=== PATIENT | female | born 1975 | race African-American/Black ===

== ENCOUNTER 2016-08-31 14:09 | Emergency (ER) | payer OTHER ==
[~2016-08-31] VITALS: Ht 162.6 cm; Wt 81.6 kg
[2016-08-31 15:41] VITALS: BP 148/79
[2016-08-31] MEDS ORDERED: HYDROCODONE/APAP 5/325MG TABLET. PO ONE (16:30)
[2016-08-31] MEDS ORDERED: IBUPROFEN 600 MG TABLET. PO ONE (16:30)
--- NOTE | 2016-08-31 16:46 | RAD ---
Indication injury pain in both knees AP oblique and lateral views of both knees were obtained. Views of the left knee appear normal. There are no significant degenerative changes. An acute bony finding is not seen. Significant joint fluid is not seen. Views of the right knee suggest possible mild degenerative change. There is suggested slight medial joint space compartment narrowing. An acute finding is not seen. IMPRESSION: No acute finding seen involving either knee. Suspect mild degenerative change involving the right knee
[2016-08-31] MEDS ORDERED: HYDR-971 PO (16:58)
--- NOTE | 2016-08-31 16:58 | PHYS DOC ---
Past Medical History Past Medical History: No Pertinent History Past Surgical History: Alcohol Use: None Drug Use: None Adult General Chief Complaint Chief Complaint: KNEE INJURY HPI HPI Patient is a 41 year old female with complaint of bilateral knee pain secondary to a slip and fall at a local grocery store within the past hour prior to arrival. Patient denies striking her head or loss of consciousness. She denies any history of knee injuries such as ligamentous injuries, fractures or dislocations. Review of Systems Review of Systems Constitutional: Denies fever or chills [] Eyes: Denies change in visual acuity, redness, or eye pain [] HENT: Denies nasal congestion or sore throat [] Respiratory: Denies cough or shortness of breath [] Cardiovascular: No additional information not addressed in HPI [] GI: Denies abdominal pain, nausea, vomiting, bloody stools or diarrhea [] : Denies dysuria or hematuria [] Musculoskeletal: Denies back pain or joint pain [] Integument: Denies rash or skin lesions [] Neurologic: Denies headache, focal weakness or sensory changes [] Endocrine: Denies polyuria or polydipsia [] Current Medications Current Medications Current Medications Medications (Trade) Dose Ordered Sig/Marry Start Time Stop Time Status Last Admin Dose Admin Acetaminophen/ Hydrocodone Bitart (Lortab 5/325) 1 tab 1X ONCE 08/31/16 16:30 08/31/16 16:31 DC 08/31/16 16:20 1 TAB Ibuprofen (Motrin) 600 mg 1X ONCE 08/31/16 16:30 08/31/16 16:31 DC 08/31/16 16:20 600 MG Allergies Allergies Allergies Coded Allergies Type Severity Reaction Last Updated Verified codeine Allergy Intermediate rash 08/31/16 Yes morphine Allergy Intermediate rash 08/31/16 Yes clindamycin Allergy Mild GI upset 08/31/16 Yes Physical Exam Physical Exam Constitutional: Well developed, well nourished, no acute distress, non-toxic appearance. [] HENT: Normocephalic, atraumatic, bilateral external ears normal, oropharynx moist, no oral exudates, nose normal. [] Eyes: PERRLA, EOMI, conjunctiva normal, no discharge. [] Neck: Normal range of motion, no tenderness, supple, no stridor. [] Cardiovascular:Heart rate regular rhythm, no murmur [] Lungs & Thorax: Bilateral breath sounds clear to auscultation [] Abdomen: Bowel sounds normal, soft, no tenderness, no masses, no pulsatile masses. [] Skin: Warm, dry, no erythema, no rash. [] Back: No tenderness, no CVA tenderness. [] Extremities: Patient's knees are both normal in appearance. There are no overlying abrasions or lacerations. There is no fusiform swelling. Extensor mechanism is intact in both lower legs. There is no high riding patella and either knee. There is tenderness to palpation to the anterior surface of both knees overlying the patella. There is no palpable defect, deformity, instability or crepitus. Ligaments and both knees are stable solid endpoints. Both lower extremities are neurovascularly intact with capillary refill less than 2 seconds. Neurologic: Alert and oriented X 3, normal motor function, normal sensory function, no focal deficits noted. [] Psychologic: Affect normal, judgement normal, mood normal. [] Current Patient Data Vital Signs Vital Signs Date Time Temp Pulse Resp B/P Pulse Ox O2 Delivery O2 Flow Rate FiO2 08/31/16 16:20 Room Air 08/31/16 15:41 98.0 67 20 100 98.0 EKG EKG [] Radiology/Procedures Radiology/Procedures 3 views of bilateral knees were performed with adequate technique and reviewed by the radiologist. There is no evidence of acute bony process or pathologic soft tissue swelling. Course & Med Decision Making Course & Med Decision Making Pertinent Labs and Imaging studies reviewed. (See chart for details) [] Dragon Disclaimer Dragon Disclaimer This electronic medical record was generated, in whole or in part, using a voice recognition dictation system. Departure Departure Impression: Primary Impression: Knee contusion Disposition: 01 HOME, SELF-CARE Condition: GOOD Referrals: NO PCP (PCP) Patient Instructions: Contusion, [id number] Additional Instructions: 1. The x-rays of your knee today are reviewed by radiologist. There is no evidence of broken bones. As discussed, you have mild degenerative changes in your right knee consistent with arthritis. 2. Wear the Vishal wrap for compression, apply ice every 2 hours for 20-30 minutes at a time. 3. Take the medication as prescribed. May also take ibuprofen every 8 hours. 4. Call [phone] tomorrow morning to schedule follow-up appointment with an orthopedic doctor if you choose to do so. Scripts Hydrocodone/Apap 5-325 ([place] 5-325 Tablet)1 Each Tablet1 Tab PO PRN Q6HRS PRN PAIN #10 TAB Prov:THOMAS BAKER 08/31/16 THOMAS BAKER Aug 31, 2016 16:58
== END 2016-08-31 17:14 | disposition home or self-care (01) ==
LOC: ER 14:09
DX: S80.01XA Contusion of right knee, initial encounter (principal); S80.02XA Contusion of left knee, initial encounter; Z88.5 Allergy status to narcotic agent; Z88.1 Allergy status to other antibiotic agents; W01.0XXA Fall on same level from slipping, tripping and stumbling without subsequent striking against object, initial encounter; Y93.89 Activity, other specified; Y92.89 Other specified places as the place of occurrence of the external cause; Y99.8 Other external cause status
CPT/HCPCS: 73562; 99284

== ENCOUNTER → 2016-09-12 | Outpatient (CLI) | payer OTHER ==
[2016-08-31 15:41] VITALS: BP 148/79
[~2016-09-12] MED LIST: HYDR-971 PO
--- NOTE | 2016-09-12 16:17 | KCIC ---
PROCEDURE MR of the right knee HISTORY Right knee pain. Patient fell August 31, 2016. Pain medially and below the patella. COMPARISON None TECHNIQUE Standard noncontrast images are obtained. FINDINGS Degenerative tear of the medial meniscus. No evidence of a lateral meniscal tear. The anterior cruciate ligament is poorly visualized, likely due to a chronic rupture. There are no acute pivot-shift bone injuries. The posterior cruciate ligament is intact. Medial collateral ligament is intact. Iliotibial band unremarkable. Fibular collateral ligament, biceps femoris tendon and popliteus tendon are intact. The extensor mechanism is intact. Trace joint fluid. No evidence of osteochondral loose body. Severe chondromalacia at the medial joint compartment. Moderate chondromalacia at the posterior lateral tibial plateau and lateral femoral condyle. No bone lesion or acute fracture. No significant Irby cyst. No acute soft tissue abnormality IMPRESSION 1. Medial meniscal tear. 2. 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 3. Primary osteoarthritis. Electronically signed by: Live Mcclure MD (Sep 12, 2016 16:15:27)
== END | disposition home or self-care (01) ==
LOC: KCIC MRI 15:07
PROVIDERS: ATTEND Orthopaedic Surgery
DX: M17.11 Unilateral primary osteoarthritis, right knee (principal); S83.241A Other tear of medial meniscus, current injury, right knee, initial encounter; M94.261 Chondromalacia, right knee; W19.XXXA Unspecified fall, initial encounter; Y93.89 Activity, other specified; Y92.89 Other specified places as the place of occurrence of the external cause; Y99.8 Other external cause status
CPT/HCPCS: 73721

== ENCOUNTER → 2016-09-23 | Outpatient (CLI) | payer OTHER ==
[2016-08-31 15:41] VITALS: BP 148/79
--- NOTE | 2016-09-23 16:22 | KCIC ---
PROCEDURE MRI left knee without contrast. HISTORY Fall with retropatellar pain. TECHNIQUE MRI of the left knee was performed without intravenous contrast. COMPARISON 08/31/2016. FINDINGS The anterior cruciate ligament and posterior cruciate ligament are intact. The medial collateral ligament and lateral collateral ligament complex are intact. The patellar retinacula and extensor mechanism are intact. The trochlea is somewhat shallow and there is mild lateral patellar tilt. There is mild edema within the lateral aspect of Hoffa's fat pad. The medial and lateral menisci are intact. There is a small undercutting cartilage fissure along the median ridge of the patella that measures in the 3 x 4 millimeters. There is no subchondral edema. The trochlear cartilage and medial/lateral patellar cartilage demonstrate no focal defects. There is no joint effusion.Red marrow reconversion is noted within distal femoral metaphysis. Popliteal lymph nodes are prominent but retain their fatty harsh, measuring up to 1.8 x 1.0 centimeters. IMPRESSION - Small superficial undercutting cartilage fissure along the median ridge of the patella measuring 4 millimeters. - Mild lateral patellar tilt. Correlate for patella-lateral femoral condyle friction syndrome. - Prominent popliteal lymph nodes. Correlate for lower extremity inflammation. - Red marrow reconversion. Correlate for smoking or anemia. Electronically signed by: Shamir Young (Sep 23, 2016 16:20:51)
== END | disposition home or self-care (01) ==
LOC: KCIC MRI 14:23
PROVIDERS: ATTEND Orthopaedic Surgery
DX: R60.9 Edema, unspecified (principal)
CPT/HCPCS: 73721